=== PATIENT | female | born 1950 | race Caucasian/White ===

== ENCOUNTER → 2017-01-12 | Outpatient (CLI) | payer MEDICARE, OTHER ==
--- NOTE | 2017-01-14 11:04 | MM ---
Reason for exam: screening (asymptomatic). History: Patient is postmenopausal. Physical Findings: A clinical breast exam by your physician is recommended on an annual basis and results should be correlated with mammographic findings. MG 3D Screening Mammo W/Cad Bilateral CC and MLO view(s) were taken. The breast tissue is almost entirely fat. There is no discrete abnormality. ASSESSMENT: Negative, BI-RAD 1 RECOMMENDATION: Routine screening mammogram of both breasts in 1 year.
== END | disposition home or self-care (01) ==
LOC: RADMAMWWP 14:21
PROVIDERS: ATTEND Family Medicine
DX: Z12.31 Encounter for screening mammogram for malignant neoplasm of breast (principal)
CPT/HCPCS: 77063; G0202

== ENCOUNTER → 2018-05-16 | Outpatient (CLI) | payer MEDICARE, OTHER ==
--- NOTE | 2018-05-17 13:10 | MM ---
Reason for exam: screening (asymptomatic). Last mammogram was performed 1 year and 4 months ago. History: Patient is postmenopausal. Physical Findings: A clinical breast exam by your physician is recommended on an annual basis and results should be correlated with mammographic findings. MG 3D Screening Mammo W/Cad Bilateral CC and MLO view(s) were taken. Prior study comparison: January 12, 2017, bilateral MG 3d screening mammo w/cad. The breast tissue is almost entirely fat. No significant changes when compared with prior studies. ASSESSMENT: Benign, BI-RAD 2 RECOMMENDATION: Routine screening mammogram of both breasts in 1 year.
== END | disposition home or self-care (01) ==
LOC: RADMAMWWP 15:06
PROVIDERS: ATTEND Family Medicine
DX: Z12.31 Encounter for screening mammogram for malignant neoplasm of breast (principal)
CPT/HCPCS: 77063; 77067

== ENCOUNTER → 2018-05-24 | Outpatient (CLI) | payer MEDICARE, OTHER ==
--- NOTE | 2018-05-24 17:59 | MR ---
EXAMINATION TYPE: MR lumbar spine wo con DATE OF EXAM: 05/24/2018 COMPARISON: None HISTORY: Back pain CONTRAST: 0 mL intravenous Gadavist. TECHNIQUE: Multiplanar, multisequence images of the lumbar spine were acquired. FINDINGS: L5-S1: No significant disc bulge or disc herniation. No spinal canal stenosis. No foraminal stenosi s. . L4-L5: No significant disc bulge or disc herniation. No spinal canal stenosis. Uncovertebral joint h ypertrophy and facet hypertrophy has posterior lateral thecal sac compression. AP spinal canal narrow ing measuring 1.0 cm is present. Neural foramen are patent.. L3-L4: No significant disc bulge or disc herniation. No spinal canal stenosis. No foraminal stenosi s. Mild facet hypertrophy is present. There is mild superior endplate compression deformity. No susp icious signal changes to suggest acute compression is evident. No posterior wall displacement is evid ent.. L2-L3: No significant disc bulge or disc herniation. No spinal canal stenosis. No foraminal stenosi s. Facet hypertrophy is mild posterior lateral thecal sac compression.. L1-L2: No significant disc bulge or disc herniation. No spinal canal stenosis. No foraminal stenosi s. . T12-L1: Very minimal disc bulging into the right paracentral region may be present with anterior thec al sac flattening. No AP spinal canal stenosis is present. Neural foramen are patent. No spinal nash l stenosis. No foraminal stenosis. . T12: There is a severe compression deformity with approximately 70% loss of vertebral body height. Ap proximately 30% loss of posterior vertebral body height is evident. Subtle flattening of the anterior thecal sac is present without cord contact from the superior endplate. No spinal canal stenosis is p resent. T11-12 and T12-L1 foramen are patent. Note is made of some marrow conversion scattered throughout the lumbar spine. IMPRESSION: 1. Severe compression deformity at T12 without posterior wall displacement or spinal canal stenosis. 2. Mild compression deformity L3 without posterior wall displacement. 3. No acute osseous abnormality evident. 4. Multilevel facet hypertrophy. This appears greatest at L4-5 with ligamentum flavum laxity which espinosa s posterior thecal sac compression AP spinal canal narrowing at 1.0 cm is borderline present.
== END | disposition home or self-care (01) ==
LOC: RADMRIMAIN 13:51
PROVIDERS: ATTEND Orthopaedic Surgery
DX: S32.000A Wedge compression fracture of unspecified lumbar vertebra, initial encounter for closed fracture (principal); M99.73 Connective tissue and disc stenosis of intervertebral foramina of lumbar region
CPT/HCPCS: 72148

== ENCOUNTER → 2021-03-31 | Outpatient (CLI) | payer MEDICARE, OTHER ==
[2021-03-31 15:14] LABS: African American GFR (CKD) >90 (>60 ml/min/1.73 sqM); Blood Urea Nitrogen 12 mg/dL (7-17); Non-African American GFR(CKD) >90 (>60 ml/min/1.73 sqM)
--- NOTE | 2021-03-31 16:02 | CT ---
EXAMINATION TYPE: CT soft tissue neck w con DATE OF EXAM: 03/31/2021 COMPARISON: None HISTORY: Dysphagia, hoarseness CT DLP: 842.70 mGycm CONTRAST: CT scan of the neck is performed with IV Contrast, patient injected with 100 mL of Isovue 300. Contrast enhanced CT of the neck was performed from the skull base through the lung apices. AIRWAY: The supraglottic, glottic, and subglottic portions of the airway appear patent and free of mass. SALIVARY GLANDS: The submandibular and parotid glands are free of mass or inflammatory process. THYROID GLAND: No nodules or masses seen. LYMPH NODES: No adenopathy seen greater than 1cm. LUNG APICES: No nodule or mass is seen. OTHER: Vascular structures are patent. Degenerative changes cervical spine with postoperative change s noted as well. No abscess seen. IMPRESSION: No significant abnormality to account for the patient's symptoms. Correlate clinically.
== END | disposition home or self-care (01) ==
LOC: RADCTMAIN 14:21
PROVIDERS: ATTEND Otolaryngology
DX: R13.10 Dysphagia, unspecified (principal); R49.0 Dysphonia
CPT/HCPCS: 82565; 84520; 70491; 36415; Q9967

== ENCOUNTER 2021-05-13 13:08 | Emergency (ER) | payer MEDICARE, OTHER ==
[2021-05-13] MEDS ORDERED: SODIUM CHLORIDE 0.9% 500 ML 500 ML IV STA (13:14)
--- NOTE | 2021-05-13 13:27 | ED ---
General Adult HPI - General Stated complaint: SVT/Cardiac Time Seen by Provider: 05/13/21 13:08 Source: patient, RN notes reviewed, old records reviewed - History of Present Illness Initial comments: This is a 70-year-old female who presents emergency department with palpitations shortness of breath. Patient has been diagnosed with COVID over 10 days ago. Patient started feeling short of breath yesterday she states. EMS was called the primary to the hospital when they got there is her heart was about 180 day believed her to be in SVT they gave her adenosine 6 mg and converted to a normal sinus rhythm. Patient states currently she feels much improved. Patient is without complaint at this time. Patient denies any chest pain patient denies any fever chills or cough today. Patient denies any abdominal pain patient d enies nausea vomiting diarrhea - Related Data Home Medications Medication Instructions Recorded Confirmed Albuterol Sulfate [Proair Hfa] 2 puff INHALATION RT-QID PRN 05/13/21 05/13/21 Ascorbic Acid [Vitamin C] 500 mg PO DAILY 05/13/21 05/13/21 Body, Hair, Skin & Nails 2 tab PO DAILY 05/13/21 05/13/21 Budesonide [Pulmicort] 0.5 mg INHALATION RT-BID 05/13/21 05/13/21 Cetirizine HCl 10 mg PO DAILY 05/13/21 05/13/21 Cholecalciferol [Vitamin D3 (125 125 mcg PO DAILY 05/13/21 05/13/21 Mcg = 5000 Iu)] DULoxetine HCL [Cymbalta] 120 mg PO DAILY 05/13/21 05/13/21 Florastor 250mg 250 mg PO DAILY 05/13/21 05/13/21 L.acidoph,Paracasei, B.lactis 1 cap PO DAILY 05/13/21 05/13/21 [Probiotic] LORazepam [Ativan] 1 mg PO BID 05/13/21 05/13/21 Levothyroxine Sodium 150 mcg PO DAILY 05/13/21 05/13/21 Nystatin 100,000Unit/gm Cream 1 applic TOPICAL BID 05/13/21 05/13/21 [Mycostatin Cream] OLANZapine [ZyPREXA] 2.5 mg PO HS 05/13/21 05/13/21 Ondansetron Odt [Zofran Odt] 4 mg PO BID PRN 05/13/21 05/13/21 Primidone [Mysoline] 250 mg PO BID 05/13/21 05/13/21 levETIRAcetam [Keppra] 750 mg PO BID 05/13/21 05/13/21 Allergies Allergy/AdvReac Type Severity Reaction Status Date / Time avocado Allergy Unknown Verified 05/13/21 14:40 banana Allergy Rash/Hives Verified 05/13/21 14:40 ciprofloxacin [From Cipro] Allergy Rash/Hives Verified 05/13/21 14:40 clindamycin Allergy Rash/Hives Verified 05/13/21 14:40 iodine Allergy Rash/Hives Verified 05/13/21 14:40 Penicillins Allergy Rash/Hives Verified 05/13/21 14:40 shellfish derived [Shellfish] Allergy Rash/Hives Verified 05/13/21 14:40 vancomycin Allergy Rash/Hives Verified 05/13/21 14:40 alendronate sodium AdvReac tooth loss Verified 05/13/21 14:40 buspirone [From BuSpar] AdvReac Hallucinati Verified 05/13/21 14:40 ons Review of Systems ROS Statement: Those systems with pertinent positive or pertinent negative responses have been documented in the HPI. ROS Other: All systems not noted in ROS Statement are negative. General Exam - General Exam Comments Initial Comments: GENERAL: Patient is well-developed and well-nourished. Patient is nontoxic and well- hydrated and is in mild distress. ENT: Neck is soft and supple. No significant lymphadenopathy is noted. Oropharynx is clear. Moist mucous membranes. Neck has full range of motion without eliciting any pain. EYES: The sclera were anicteric and conjunctiva were pink and moist. Extraocular movements were intact and pupils were equal round and reactive to light. Eyelids were unremarkable. PULMONARY: Unlabored respirations. Good breath sounds bilaterally. No audible rales rhonchi or wheezing was noted. CARDIOVASCULAR: There is a regular rate and rhythm without any murmurs gallops or rubs. ABDOMEN: Soft and nontender with normal bowel sounds. No palpable organomegaly was noted. There is no palpable pulsatile mass. SKIN: Skin is clear with no lesions or rashes and otherwise unremarkable. NEUROLOGIC: Patient is alert and oriented x3. Cranial nerves II through XII are grossly intact. Motor and sensory are also intact. Patient's speech is low in volume which she states has been that way for a few days. Symmetrical smile. MUSCULOSKELETAL: Normal extremities with adequate strength and full range of motion. LYMPHATICS: No significant lymphadenopathy is noted PSYCHIATRIC: Normal psychiatric evaluation. Course Vital Signs 05/13/21 05/13/21 05/13/21 13:45 14:51 14:54 Temperature 97.8 F 98.8 F Pulse Rate 97 Pulse Rate [ 74 Left Lateral] Respiratory 18 21 Rate Blood Pressure 141/75 Blood Pressure 100/74 [Left Arm] O2 Sat by Pulse 95 97 Oximetry Medical Decision Making - Medical Decision Making EKG shows sinus rhythm with occasional PAC at a rate of 84 bpm [place] interval is 130 QRS is 86 QT interval 382 QTC is 451. Patient's EKG shows no ST segment elevation or depression. X-ray showed some possible increased edema. Patient was given Lasix this time. Patient was oxygenating at 95% 96%.. Patient remained asymptomatic in the emergency department. - Lab Data Result diagrams: 05/13/21 13:35 05/13/21 13:35 Lab Results 05/13/21 05/13/21 05/13/21 Range/Units 13:35 13:35 13:35 WBC 8.7 (3.8-10.6) k/uL RBC 4.23 (3.80-5.40) m/uL Hgb 13.6 (11.4-16.0) gm/dL Hct 40.2 (34.0-46.0) % MCV 94.9 (80.0-100.0) fL MCH 32.1 (25.0-35.0) pg MCHC 33.8 (31.0-37.0) g/dL RDW 13.5 (11.5-15.5) % Plt Count 162 (150-450) k/uL MPV 8.4 Neutrophils % 90 % Lymphocytes % 7 % Monocytes % 2 % Eosinophils % 1 % Basophils % 0 % Neutrophils # 7.8 H (1.3-7.7) k/uL Lymphocytes # 0.6 L (1.0-4.8) k/uL Monocytes # 0.2 (0-1.0) k/uL Eosinophils # 0.1 (0-0.7) k/uL Basophils # 0.0 (0-0.2) k/uL PT 11.4 (9.0-12.0) sec INR 1.1 (<1.2) APTT 22.8 (22.0-30.0) sec Sodium 137 (137-145) mmol/L Potassium 4.6 (3.5-5.1) mmol/L Chloride 96 L (98-107) mmol/L Carbon Dioxide 37 H (22-30) mmol/L Anion Gap 4 mmol/L BUN 14 (7-17) mg/dL Creatinine 0.34 L (0.52-1.04) mg/dL Est GFR (CKD-EPI)AfAm >90 (>60 ml/min/1.73 sqM) Est GFR (CKD-EPI)NonAf >90 (>60 ml/min/1.73 sqM) Glucose 144 H (74-99) mg/dL Calcium 8.7 (8.4-10.2) mg/dL Magnesium 2.1 (1.6-2.3) mg/dL Total Bilirubin 0.6 (0.2-1.3) mg/dL AST 34 (14-36) U/L ALT 26 (4-34) U/L Alkaline Phosphatase 62 (38-126) U/L Troponin I (0.000-0.034) ng/mL Total Protein 6.9 (6.3-8.2) g/dL Albumin 3.6 (3.5-5.0) g/dL TSH 6.210 H (0.465-4.680) mIU/L 05/13/21 Range/Units 13:35 WBC (3.8-10.6) k/uL RBC (3.80-5.40) m/uL Hgb (11.4-16.0) gm/dL Hct (34.0-46.0) % MCV (80.0-100.0) fL MCH (25.0-35.0) pg MCHC (31.0-37.0) g/dL RDW (11.5-15.5) % Plt Count (150-450) k/uL MPV Neutrophils % % Lymphocytes % % Monocytes % % Eosinophils % % Basophils % % Neutrophils # (1.3-7.7) k/uL Lymphocytes # (1.0-4.8) k/uL Monocytes # (0-1.0) k/uL Eosinophils # (0-0.7) k/uL Basophils # (0-0.2) k/uL PT (9.0-12.0) sec INR (<1.2) APTT (22.0-30.0) sec Sodium (137-145) mmol/L Potassium (3.5-5.1) mmol/L Chloride (98-107) mmol/L Carbon Dioxide (22-30) mmol/L Anion Gap mmol/L BUN (7-17) mg/dL Creatinine (0.52-1.04) mg/dL Est GFR (CKD-EPI)AfAm (>60 ml/min/1.73 sqM) Est GFR (CKD-EPI)NonAf (>60 ml/min/1.73 sqM) Glucose (74-99) mg/dL Calcium (8.4-10.2) mg/dL Magnesium (1.6-2.3) mg/dL Total Bilirubin (0.2-1.3) mg/dL AST (14-36) U/L ALT (4-34) U/L Alkaline Phosphatase (38-126) U/L Troponin I 0.021 (0.000-0.034) ng/mL Total Protein (6.3-8.2) g/dL Albumin (3.5-5.0) g/dL TSH (0.465-4.680) mIU/L Disposition Clinical Impression: Supraventricular tachycardia Disposition: HOME SELF-CARE Instructions (If sedation given, give patient instructions): Supraventricular Tachycardia (ED) Is patient prescribed a controlled substance at d/c from ED?: No Referrals: Fabiano Martinez MD [Primary Care Provider] - 1-2 days Time of Disposition: 15:11
[2021-05-13 13:59] LABS: Basophils % (A) 0 %; Eosinophils # (A) 0.1 k/uL (0-0.7); Eosinophils % (A) 1 %; HCT 40.2 % (34.0-46.0); HGB 13.6 gm/dL (11.4-16.0); Lymphocytes # (A) 0.6 k/uL (1.0-4.8); Lymphocytes % (A) 7 %; MCH 32.1 pg (25.0-35.0); MCHC 33.8 g/dL (31.0-37.0); MCV 94.9 fL (80.0-100.0); Mean Platelet Volume 8.4; Monocytes # (A) 0.2 k/uL (0-1.0); Monocytes % (A) 2 %; Neutrophils # (A) 7.8 k/uL (1.3-7.7); Neutrophils % (A) 90 %; Platelet Count 162 k/uL (150-450); RBC 4.23 m/uL (3.80-5.40); RDW 13.5 % (11.5-15.5); WBC 8.7 k/uL (3.8-10.6)
--- NOTE | 2021-05-13 14:06 | XR ---
EXAMINATION TYPE: XR chest 2V DATE OF EXAM: 05/13/2021 COMPARISON: Chest x-ray October 01, 2010 HISTORY: Dysrhythmia. TECHNIQUE: Frontal and lateral views of the chest are obtained. FINDINGS: Low lung volumes redemonstrated. There are chronic parenchymal changes bilaterally with sug gestion of new central vascular congestion.. The cardiac silhouette size is stable and within normal limits. The osseous structures are demineralized. Surgical change in the cervical spine is partial ly imaged. IMPRESSION: Low lung volumes and chronic changes redemonstrated. New central vascular congestion bozena pected.
[2021-05-13 14:10] LABS: INR 1.1 (<1.2); Partial Thromboplastin Time 22.8 sec (22.0-30.0); Prothrombin Time 11.4 sec (9.0-12.0)
[2021-05-13 14:13] LABS: ALT 26 U/L (4-34); African American GFR (CKD) >90 (>60 ml/min/1.73 sqM); Albumin 3.6 g/dL (3.5-5.0); Anion Gap 4 mmol/L; Blood Urea Nitrogen 14 mg/dL (7-17); Calcium 8.7 mg/dL (8.4-10.2); Carbon Dioxide 37 mmol/L (22-30); Chloride 96 mmol/L (98-107); Glucose 144 mg/dL (74-99); Non-African American GFR(CKD) >90 (>60 ml/min/1.73 sqM); Sodium 137 mmol/L (137-145); Total Bilirubin 0.6 mg/dL (0.2-1.3); Total Protein 6.9 g/dL (6.3-8.2)
[2021-05-13 14:15] LABS: AST 34 U/L (14-36); Alkaline Phosphatase 62 U/L (38-126); Potassium 4.6 mmol/L (3.5-5.1)
[2021-05-13 14:16] LABS: Magnesium 2.1 mg/dL (1.6-2.3)
[2021-05-13] MEDS ORDERED: FUROSEMIDE 10 MG/ML 4 ML VIAL IV STA (14:23)
[2021-05-13 14:53] VITALS: RESP 21
[2021-05-13 14:55] VITALS: TEMP 98.8
[2021-05-13] MEDS ORDERED: ONDANSETRON 4 MG/2 ML VIAL IVP STA (15:42)
[2021-05-13 19:42] VITALS: BP 126/76; PULSE 97
== END 2021-05-13 21:48 | disposition home or self-care (01) ==
LOC: EC 13:08
DX: I47.1 Supraventricular tachycardia (principal)
CPT/HCPCS: 36415; 93005; 80053; 83735; 84443; 84484; 85025; 85610; 85730; 71046; 99285; 96374; 96375; J1940; J2405

== ENCOUNTER 2021-06-28 19:12 | Inpatient (IN) | payer MEDICARE, OTHER ==
[2021-06-28 19:29] LABS: Glucose,Whole Blood 97 mg/dL (75-99)
[2021-06-28] MEDS ORDERED: ADENOSINE 3 MG/ML 2 ML VIAL IVP STA (20:36)
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
[2021-06-28 21:02] LABS: Basophils % (A) 0 %; Eosinophils % (A) 0 %; HCT 46.2 % (34.0-46.0); HGB 14.5 gm/dL (11.4-16.0); Hypochromasia Slight; Lymphocytes # (A) 1.7 k/uL (1.0-4.8); Lymphocytes % (A) 15 %; MCH 32.2 pg (25.0-35.0); MCHC 31.3 g/dL (31.0-37.0); Macrocytosis Slight; Mean Platelet Volume 9.1; Monocytes # (A) 0.6 k/uL (0-1.0); Monocytes % (A) 6 %; Neutrophils # (A) 8.7 k/uL (1.3-7.7); Neutrophils % (A) 78 %; Platelet Count 174 k/uL (150-450); RDW 13.7 % (11.5-15.5); WBC 11.2 k/uL (3.8-10.6)
[2021-06-28 21:15] LABS: ALT 25 U/L (4-34); AST 44 U/L (14-36); African American GFR (CKD) >90 (>60 ml/min/1.73 sqM); Alkaline Phosphatase 110 U/L (38-126); Anion Gap 9 mmol/L; Blood Urea Nitrogen 27 mg/dL (7-17); Calcium 8.8 mg/dL (8.4-10.2); Carbon Dioxide 39 mmol/L (22-30); Chloride 90 mmol/L (98-107); Glucose 115 mg/dL (74-99); Non-African American GFR(CKD) >90 (>60 ml/min/1.73 sqM); Sodium 138 mmol/L (137-145); Total Bilirubin 1.1 mg/dL (0.2-1.3); Total Protein 7.7 g/dL (6.3-8.2)
[2021-06-28 21:21] LABS: INR 1.1 (<1.2); Partial Thromboplastin Time 23.3 sec (22.0-30.0); Prothrombin Time 11.6 sec (9.0-12.0)
--- NOTE | 2021-06-28 21:23 | XR ---
EXAMINATION TYPE: XR chest 1V portable DATE OF EXAM: 06/28/2021 9:17 PM COMPARISON:Chest radiographs from 05/13/2021. CLINICAL INDICATION:Female, 70 years old with history of hypoxia, TECHNIQUE: Frontal view of the chest. FINDINGS: Patient is poorly positioned. There is a similar of a right diaphragm. Perihilar opacities are again seen. Lungs/Pleura: There is no evidence of pleural effusion, focal consolidation, or pneumothorax. Pulmonary vascularity: Pulmonary vascular congestion. Heart/mediastinum: Cardiomediastinal silhouette is enlarged and stable. Musculoskeletal: No acute osseous pathology. IMPRESSION: Lung volumes with suspected congestive heart failure changes with cardiomegaly and mild pulmonary vas cular congestion. Correlate with BNP.
[2021-06-28 21:35] LABS: MCV 102.9 fL (80.0-100.0)
--- NOTE | 2021-06-28 22:15 | CT ---
EXAMINATION TYPE: CT brain wo con DATE OF EXAM: 06/28/2021 COMPARISON: 10/01/2010 HISTORY: ams CT DLP: 1182.4 mGycm Automated exposure control for dose reduction was used. There is some cerebral cortical atrophy. This is more noticeable in the frontal lobes. There is more severe right foraminal and parietal atrophy. There is no midline shift. There is no evidence of intra cranial hemorrhage. The calvarium is intact. There is posterior fusion surgery at the cervical crania l junction. IMPRESSION: Cerebral atrophy which is more severe in the right frontal parietal lobe and not changed compared to old exam. No acute intracranial abnormality.
[2021-06-28] MEDS ORDERED: LORazepam 2 MG/ML INJ IV STA (22:16)
[2021-06-28] MEDS ORDERED: HEPARIN SODIUM 1,000 UN/ML (10ML VL) IV ONE (22:21)
[2021-06-28] MEDS ORDERED: ASPIRIN 81 MG PO STA (22:21)
[2021-06-28] MEDS ORDERED: HEPARIN SODIUM 1,000 UN/ML (10ML VL) IV PRN (22:21)
[2021-06-28] MEDS ORDERED: METOPROLOL TARTRATE 5 MG/5 ML VIAL IVP SCH (22:30)
[2021-06-28] MEDS: ADENOSINE 3 MG/ML 2 ML VIAL IVP STA ×2 (22:34→22:40)
[2021-06-28 22:35] LABS: Appearance,Urine Cloudy (Clear); Bacteria,Urine Few /hpf; Bilirubin,Urine Negative (Negative); Blood,Urine Negative (Negative); Color,Urine Yellow; Glucose,Urine (UA) Negative (Negative); Hyaline Casts,Urine 8 /lpf (0-2); Ketones,Urine Trace (Negative); Leukocyte Esterase,Urine Large (Negative); Mucus,Urine Occasional /hpf; Nitrite,Urine Negative (Negative); Protein,Urine 1+ (Negative); RBC,Urine 4 /hpf (0-5); Specific Gravity,Urine 1.025 (1.001-1.035); Triple Phosphate Crystal,Urine Rare /hpf; WBC,Urine >182 /hpf (0-5)
[2021-06-28] MEDS ORDERED: METOPROLOL TARTRATE 5 MG/5 ML VIAL IVP STA (22:36)
[2021-06-28] MEDS: HEPARIN SOD,PORK IN 0.45% NACL 25,000 UNIT in 0.45% NACL 1 250ML.BAG IV SCH (22:41)
[2021-06-28] MEDS ORDERED: FUROSEMIDE 10 MG/ML 4 ML VIAL IV STA (22:59)
[2021-06-28] MEDS ORDERED: ALBUTEROL NEBULIZED 2.5 MG/3 ML INHALATION PRN (23:06)
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
[2021-06-29] MEDS ORDERED: ADENOSINE 3 MG/ML 2 ML VIAL IVP STA (02:46)
[2021-06-29 04:03] LABS: Basophils # (A) 0.1 k/uL (0-0.2); Basophils % (A) 1 %; Eosinophils # (A) 0.1 k/uL (0-0.7); Eosinophils % (A) 1 %; HCT 46.4 % (34.0-46.0); HGB 13.9 gm/dL (11.4-16.0); Hypochromasia Moderate; Lymphocytes % (A) 17 %; MCH 31.2 pg (25.0-35.0); MCV 103.9 fL (80.0-100.0); Macrocytosis Slight; Mean Platelet Volume 8.4; Monocytes # (A) 0.8 k/uL (0-1.0); Monocytes % (A) 7 %; Neutrophils # (A) 8.5 k/uL (1.3-7.7); Neutrophils % (A) 72 %; Platelet Count 158 k/uL (150-450); RBC 4.47 m/uL (3.80-5.40); RDW 12.9 % (11.5-15.5); WBC 11.7 k/uL (3.8-10.6)
[2021-06-29 04:12] LABS: INR 1.2 (<1.2); Partial Thromboplastin Time 48.8 sec (22.0-30.0); Prothrombin Time 12.1 sec (9.0-12.0)
[2021-06-29 04:28] LABS: ALT 22 U/L (4-34); AST 31 U/L (14-36); African American GFR (CKD) >90 (>60 ml/min/1.73 sqM); Albumin 3.7 g/dL (3.5-5.0); Alkaline Phosphatase 116 U/L (38-126); Anion Gap 7 mmol/L; Blood Urea Nitrogen 26 mg/dL (7-17); Calcium 8.6 mg/dL (8.4-10.2); Carbon Dioxide 37 mmol/L (22-30); Chloride 95 mmol/L (98-107); Glucose 110 mg/dL (74-99); Non-African American GFR(CKD) >90 (>60 ml/min/1.73 sqM); Potassium 4.1 mmol/L (3.5-5.1); Sodium 139 mmol/L (137-145); Total Bilirubin 0.8 mg/dL (0.2-1.3); Total Protein 6.9 g/dL (6.3-8.2)
[2021-06-29] MEDS ORDERED: VERAPAMIL 80 MG TAB PO SCH (09:00)
[2021-06-29] MEDS: DULoxetine HCL 60 MG CAPSULE.DR PO SCH (09:50)
[2021-06-29] MEDS: DOXYCYCLINE 100 MG CAP PO SCH (09:50)
[2021-06-29] MEDS: PANTOPRAZOLE 40 MG TABLET PO SCH (09:51)
[2021-06-29] MEDS: LEVOTHYROXINE 88 MCG TAB PO SCH (09:51)
[2021-06-29] MEDS: LORazepam 0.5 MG TAB PO SCH ×2 (09:51→21:03)
[2021-06-29] MEDS: FUROSEMIDE 10 MG/ML 4 ML VIAL IV SCH ×2 (10:05→21:03)
[2021-06-29] MEDS: AMIODARONE 200 MG TAB PO SCH ×2 (10:05→21:03)
[2021-06-29] MEDS: METOPROLOL SUCCINATE (ER) 25 MG TAB.ER.24H PO SCH (11:49)
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
--- NOTE | 2021-06-29 12:10 | P.PN ---
Subjective Progress Note Date: 06/29/21 Pt is near baseline oxygen requirement. Reports significant improvement in breathing compared to yesterday. Denies pain anywhere. Only question is regarding when she can be discharged. I would like to observe her for one more night, then if stable, we can discharge her tomorrow. Down-titrate oxygen to baseline today. Objective - Vital Signs Vital signs: Vital Signs Temp 99.1 F 06/28/21 19:34 Pulse 57 L 06/29/21 09:54 Resp 16 06/29/21 09:54 BP 133/71 06/29/21 09:54 Pulse Ox 98 06/29/21 09:54 Intake & Output 06/28/21 06/29/21 06/29/21 18:59 06:59 18:59 Intake Total 53.167 Balance 53.167 Weight 107.275 kg Intake: Intake, IV Titration 53.167 Amount Heparin Sod,Pork in 0.45% 53.167 NaCl 25,000 unit In 0.45 % NaCl 1 250ml.bag @ 9. 3218 UNITS/KG/HR 10 mls/ hr IV .Q24H [facility] Rx#: [id number] - Exam Gen: awake, alert HEENT: normocephalic, atraumatic, good hearing acuity, moist mucous membranes Resp: good air exchange, breathing comfortably with no accessory muscle use CVS: good distal perfusion x 4, GI: soft, NTTP, ND : no SPT, no CVAT, MSK: Bilateral pitting edema, no clubbing Neuro: non-focal, moving all extremities Psych: cooperative, euthymic mood - Labs CBC & Chem 7: 06/29/21 03:37 06/29/21 03:37 Labs: Abnormal Lab Results - Last 24 Hours (Table) 06/28/21 06/28/21 06/28/21 Range/Units 20:23 20:23 20:23 WBC 11.2 H (3.8-10.6) k/uL Hct 46.2 H (34.0-46.0) % MCV 102.9 H D (80.0-100.0) fL MCHC (31.0-37.0) g/dL Neutrophils # 8.7 H (1.3-7.7) k/uL PT (9.0-12.0) sec INR (<1.2) APTT (22.0-30.0) sec Chloride 90 L (98-107) mmol/L Carbon Dioxide 39 H (22-30) mmol/L BUN 27 H (7-17) mg/dL Creatinine (0.52-1.04) mg/dL Glucose 115 H (74-99) mg/dL AST 44 H (14-36) U/L Troponin I 0.079 H* (0.000-0.034) ng/mL Urine Appearance (Clear) Urine Protein (Negative) Urine Ketones (Negative) Ur Leukocyte Esterase (Negative) Urine WBC (0-5) /hpf Triple Phos Crystals (None) /hpf Urine Bacteria (None) /hpf Hyaline Casts (0-2) /lpf Urine Mucus (None) /hpf 06/28/21 06/28/21 06/29/21 Range/Units 20:27 23:43 03:37 WBC (3.8-10.6) k/uL Hct (34.0-46.0) % MCV (80.0-100.0) fL MCHC (31.0-37.0) g/dL Neutrophils # (1.3-7.7) k/uL PT 12.1 H (9.0-12.0) sec INR 1.2 H (<1.2) APTT 48.8 H (22.0-30.0) sec Chloride (98-107) mmol/L Carbon Dioxide (22-30) mmol/L BUN (7-17) mg/dL Creatinine (0.52-1.04) mg/dL Glucose (74-99) mg/dL AST (14-36) U/L Troponin I 0.089 H* (0.000-0.034) ng/mL Urine Appearance Cloudy H (Clear) Urine Protein 1+ H (Negative) Urine Ketones Trace H (Negative) Ur Leukocyte Esterase Large H (Negative) Urine WBC >182 H (0-5) /hpf Triple Phos Crystals Rare H (None) /hpf Urine Bacteria Few H (None) /hpf Hyaline Casts 8 H (0-2) /lpf Urine Mucus Occasional H (None) /hpf 06/29/21 06/29/21 06/29/21 Range/Units 03:37 03:37 03:37 WBC 11.7 H (3.8-10.6) k/uL Hct 46.4 H (34.0-46.0) % MCV 103.9 H (80.0-100.0) fL MCHC 30.0 L (31.0-37.0) g/dL Neutrophils # 8.5 H (1.3-7.7) k/uL PT (9.0-12.0) sec INR (<1.2) APTT (22.0-30.0) sec Chloride 95 L (98-107) mmol/L Carbon Dioxide 37 H (22-30) mmol/L BUN 26 H (7-17) mg/dL Creatinine 0.49 L (0.52-1.04) mg/dL Glucose 110 H (74-99) mg/dL AST (14-36) U/L Troponin I 0.071 H* (0.000-0.034) ng/mL Urine Appearance (Clear) Urine Protein (Negative) Urine Ketones (Negative) Ur Leukocyte Esterase (Negative) Urine WBC (0-5) /hpf Triple Phos Crystals (None) /hpf Urine Bacteria (None) /hpf Hyaline Casts (0-2) /lpf Urine Mucus (None) /hpf Assessment and Plan Assessment: Acute on chronic hypoxic respiratory failure secondary to acute CHF exacerbation -Lasix IV -Pending Echo -Cardiology consult -Cardiac monitoring -Trend troponin -Daily weights, intake and output, fluid restriction -Monitor electrolytes daily Elevated troponin, NSTEMI vs demand ischemia from CHF exacerbation Atrial Tachycardia/Atrial Flutter with RVR -C/w Heparin infusion -Trend for now -Cardiac monitoring Complicated UTI -C/w Doxycycline for now DVT prophylaxis -Heparin infusion CODE STATUS: Full Code Discussed with: Patient Anticipated discharge date: 3-[address]: [facility]
[2021-06-30] MEDS: HEPARIN SOD,PORK IN 0.45% NACL 25,000 UNIT in 0.45% NACL 1 250ML.BAG IV SCH (00:38)
[2021-06-30] MEDS: DOXYCYCLINE 100 MG CAP PO SCH ×3 (00:39→19:48)
[2021-06-30] MEDS ORDERED: ADENOSINE 3 MG/ML 2 ML VIAL IVP ONE ×2 (03:56→04:06)
--- NOTE | 2021-06-30 04:50 | P.EN ---
A- team: Indication: Tachycardia Arrived on Scene to find: Patient with HR 162. The patient denied any active complaints. She denied chest pain, SOB, or palpitations. Vital signs reviewed: BP 82/63, P 162, SpO2 95% on 3 L NC Patient seen and examined at bedside. General: [non toxic], [no distress], [appears at stated age] Derm: [warm], [dry] Head: [atraumatic], [normocephalic], [symmetric] Eyes: [EOMI], [no lid lag], [anicteric sclera] Mouth: [no lip lesion], [mucus membranes moist] Cardiovascular: [S1S2 reg], tachycardic, [no murmur], [positive posterior tibial pulse bilateral], Lungs: [CTA bilateral], [no rhonchi, no rales] , [no accessory muscle use] Abdominal: [soft], [ nontender to palpation], [no guarding], [no appreciable organomegaly] Ext: [no gross muscle atrophy], [no edema], [no contractures] Neuro: [no focal neuro deficits] Psych: [Alert], [oriented], [appropriate affect] Assessment: SVT -Adenosine 6 mg IV push was unsuccessful with subsequent 12 milligrams IV push successfully aborting and the arrhythmia -Cardiology notified -C/w Cardiac monitoring A Total of 35 minutes of critical care time was spent on the complex care of this patient.
[2021-06-30] MEDS: LEVOTHYROXINE 88 MCG TAB PO SCH (06:10)
[2021-06-30] MEDS: PANTOPRAZOLE 40 MG TABLET PO SCH (06:11)
[2021-06-30] MEDS: LORazepam 0.5 MG TAB PO SCH ×2 (08:54→19:48)
[2021-06-30] MEDS: DULoxetine HCL 60 MG CAPSULE.DR PO SCH (08:54)
[2021-06-30] MEDS: FUROSEMIDE 10 MG/ML 4 ML VIAL IV SCH ×2 (08:54→19:48)
[2021-06-30] MEDS: METOPROLOL SUCCINATE (ER) 25 MG TAB.ER.24H PO SCH (08:55)
[2021-06-30] MEDS: AMIODARONE 200 MG TAB PO SCH ×2 (08:55→19:48)
[2021-06-30] MEDS ORDERED: ASPIRIN 81 MG PO SCH (09:00)
--- NOTE | 2021-06-30 09:58 | P.PN ---
Subjective Progress Note Date: 06/30/21 Pt is doing well today, resting comfortably in bed. Denies dyspnea, pain, palpitations. Had episode of SVT last night which was aborted by adenosine. Objective - Vital Signs Vital signs: Vital Signs Temp 97.4 F L 06/29/21 20:00 Pulse 78 06/30/21 04:00 Resp 20 06/30/21 04:00 BP 112/70 06/30/21 04:00 Pulse Ox 95 06/30/21 04:00 Intake & Output 06/29/21 06/30/21 06/30/21 18:59 06:59 18:59 Intake Total 316.833 Balance 316.833 Weight 107.275 kg 86 kg Intake: Intake, IV Titration 196.833 Amount Heparin Sod,Pork in 0.45% 196.833 NaCl 25,000 unit In 0.45 % NaCl 1 250ml.bag @ 9. 3218 UNITS/KG/HR 10 mls/ hr IV .Q24H [facility] Rx#: [id number] Oral 120 Other: Voiding Method External Catheter # Voids 3 - Exam Gen: awake, alert HEENT: normocephalic, atraumatic, good hearing acuity, moist mucous membranes Resp: good air exchange, breathing comfortably with no accessory muscle use CVS: good distal perfusion x 4, GI: soft, NTTP, ND : no SPT, no CVAT, MSK: Bilateral pitting edema, no clubbing Neuro: non-focal, moving all extremities Psych: cooperative, euthymic mood - Labs CBC & Chem 7: 06/29/21 03:37 06/29/21 03:37 Labs: Abnormal Lab Results - Last 24 Hours (Table) 06/29/21 Range/Units 03:37 Vitamin B12 >2000.0 H (200.0-944.0) pg/mL Microbiology - Last 24 Hours (Table) 06/28/21 22:07 Blood Culture - Preliminary Blood No Growth after 24 hours 06/28/21 22:22 Blood Culture - Preliminary Blood No Growth after 24 hours 06/28/21 20:27 Urine Culture - Preliminary Urine,Voided Assessment and Plan Assessment: Acute on chronic hypoxic respiratory failure secondary to acute CHF exacerbation -Lasix IV -Pending Echo -Cardiology consult -Cardiac monitoring -Trend troponin -Daily weights, intake and output, fluid restriction -Monitor electrolytes daily Elevated troponin, NSTEMI vs demand ischemia from CHF exacerbation Atrial Tachycardia/Atrial Flutter with RVR -C/w Heparin infusion -Trend for now -Cardiac monitoring Complicated UTI -C/w Doxycycline for now DVT prophylaxis -Heparin infusion CODE STATUS: Full Code Discussed with: Patient Anticipated discharge date: 3-[address]: [facility]
--- NOTE | 2021-06-30 12:18 | ECHOF ---
Referral Reason:elevated BNP MEASUREMENTS -------- HEIGHT: 175.3 cm WEIGHT: 107.0 kg BP: 112/70 RVIDd: 3.4 cm (< 3.3) IVSd: 1.3 cm (0.6 - 1.1) LVIDd: 3.7 cm (3.9 - 5.3) LVPWd: 1.1 cm (0.6 - 1.1) IVSs: 1.8 cm LVIDs: 2.6 cm LVPWs: 1.9 cm LA Diam: 3.4 cm (2.7 - 3.8) LAESV Index (A-L): 14.57 ml/m Ao Diam: 3.0 cm (2.0 - 3.7) AV Cusp: 1.1 cm (1.5 - 2.6) MV EXCURSION: 19.523 mm (> 18.000) MV EF SLOPE: 78 mm/s (70 - 150) EPSS: 0.7 cm MV E Bryant: 0.66 m/s MV DecT: 309 ms MV A Bryant: 0.92 m/s MV E/A Ratio: 0.72 RAP: 5.00 mmHg RVSP: 40.61 mmHg FINDINGS -------- Sinus rhythm. This was a technically adequate study. The left ventricular size is normal. There is mild concentric left ventricular hypertrophy. Overa ll left ventricular systolic function is normal with, an EF between 55 - 60 %. The right ventricle is mildly enlarged. Normal LA size by volume 22+/-6 ml/m2. The right atrium is normal in size. Interatrial and interventricular septum intact. There is mild aortic valve sclerosis. Mild mitral annular calcification present. Mild tricuspid regurgitation present. There is mild pulmonary hypertension. The right ventricular systolic pressure, as measured by Doppler, is 40.61mmHg. Trace/mild (physiologic) pulmonic regurgitation. The aortic root size is normal. IVC Not well visulized. There is no pericardial effusion. CONCLUSIONS -------- 1. The left ventricular size is normal. 2. There is mild concentric left ventricular hypertrophy. 3. Overall left ventricular systolic function is normal with, an EF between 55 - 60 %. 4. The right ventricle is mildly enlarged. 5. There is mild aortic valve sclerosis. 6. Mild mitral annular calcification present. 7. Mild tricuspid regurgitation present. 8. There is mild pulmonary hypertension. 9. The right ventricular systolic pressure, as measured by Doppler, is 40.61mmHg. 10. Trace/mild (physiologic) pulmonic regurgitation. 11. There is no pericardial effusion. GRADER PATROL: Milagro Daniel RDCS
--- NOTE | 2021-06-30 13:49 | P.PN ---
Subjective Patient is a 70-year-old female with a past medical history of COPD, hyperlipidemia, hypertension, and hypothyroidism, COVID-19 pneumonia in April 2021 she was hospitalized at [facility]. 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 She is from a nursing facility, sent to the hospital for worsening shortness of breath and hypoxia. Cardiology was consulted for congestive heart failure and paroxysmal SVT, atrial flutter vs atrial tachycardia. In the ER patient was noted to be in SVT given adenosine and did spontaneously convert to sinus rhythm with PACs. 06/30/20 This morning patient went back into SVT heart rate in the 140s, received a total of 12mg adenosine and converted back to sinus rhythm HR 50s-60s. Patient seen at bedside, no distress. She continues to have some shortness of breath but states that it has improved. She denies any chest pain. She is diuresing well with 2.2L output over the past 24 hours. Labs pending Echocardiogram revealed EF 5560 percent, mild pulmonary hypertension with RVSP is 40 mmHg She's currently maintained on amiodarone 200 mg twice a day, IV heparin, metoprolol succinate 75 mg daily, IV Lasix 40mg BID PHYSICAL EXAMINATION: Th HEENT: Neck is supple. There is no jugular venous distention. CHEST EXAMINATION: Lungs are crackles bilaterally to auscultation. No chest wall tenderness is noted on palpation or with deep breathing. HEART EXAMINATION: Heart regular rate and rhythm. S1, S2 heard. No murmurs, gallops or rub. ABDOMEN: Soft, nontender. Bowel sounds are heard. No organomegaly noted. EXTREMITIES: 2+ peripheral edema. Positive foot drop FINAL ASSESSMENT AND PLAN: Acute congestive diastolic heart failure exacerbation Elevated troponin, flat trend, not consistent with acute coronary syndrome, likely supply and demand mismatch due to hypoxia and also demand ischemia due to tachycardia Atrial tachycardia/atrial flutter Hypertension Dyslipidemia Urinary tract infection PLAN: Continue amiodarone 200 mg twice daily Start Eliquis 5mg BID, this medication is covered per case management at patient's nursing facility Continue cardiac employment coach I/Os, daily weights, renal function and electrolytes Further recommendations to be placed on clinical course The patient has been seen and evaluated by practitioner and coordinating physician Objective - Vital Signs Vital signs: Vital Signs Temp 97.8 F 06/30/21 08:00 Pulse 69 01/17/22 08:00 Resp 18 06/30/21 08:00 BP 99/66 06/30/21 08:00 Pulse Ox 93 L 06/30/21 08:00 Intake & Output 06/29/21 06/30/21 06/30/21 18:59 06:59 18:59 Intake Total 316.833 240 Output Total 1100 Balance 316.833 -860 Weight 107.275 kg 86 kg Intake: Intake, IV Titration 196.833 Amount Heparin Sod,Pork in 0.45% 196.833 NaCl 25,000 unit In 0.45 % NaCl 1 250ml.bag @ 9. 3218 UNITS/KG/HR 10 mls/ hr IV .Q24H [facility] Rx#: [id number] Oral 120 240 Output: Urine 1100 Other: Voiding Method External Catheter External Catheter # Voids 3 - Labs CBC & Chem 7: 06/29/21 03:37 06/29/21 03:37 Labs: Abnormal Lab Results - Last 24 Hours (Table) 06/29/21 06/30/21 Range/Units 03:37 09:00 APTT 59.4 H (22.0-30.0) sec Vitamin B12 >2000.0 H (200.0-944.0) pg/mL Microbiology - Last 24 Hours (Table) 06/28/21 22:07 Blood Culture - Preliminary Blood No Growth after 24 hours 06/28/21 22:22 Blood Culture - Preliminary Blood No Growth after 24 hours 06/28/21 20:27 Urine Culture - Preliminary Urine,Voided
[2021-06-30] MEDS: APIXABAN 5 MG TAB PO SCH (19:48)
[2021-07-01] MEDS: LEVOTHYROXINE 88 MCG TAB PO SCH (06:21)
[2021-07-01] MEDS: PANTOPRAZOLE 40 MG TABLET PO SCH (06:21)
[2021-07-01 07:55] LABS: Basophils % (A) 0 %; Eosinophils # (A) 0.1 k/uL (0-0.7); Eosinophils % (A) 1 %; HCT 43.2 % (34.0-46.0); HGB 13.3 gm/dL (11.4-16.0); Hypochromasia Moderate; Lymphocytes # (A) 1.7 k/uL (1.0-4.8); Lymphocytes % (A) 22 %; MCHC 30.9 g/dL (31.0-37.0); MCV 103.8 fL (80.0-100.0); Macrocytosis Slight; Mean Platelet Volume 8.3; Monocytes # (A) 0.6 k/uL (0-1.0); Monocytes % (A) 7 %; Neutrophils # (A) 5.5 k/uL (1.3-7.7); Neutrophils % (A) 68 %; Platelet Count 164 k/uL (150-450); RBC 4.16 m/uL (3.80-5.40); RDW 13.1 % (11.5-15.5)
[2021-07-01 08:10] LABS: African American GFR (CKD) >90 (>60 ml/min/1.73 sqM); Blood Urea Nitrogen 17 mg/dL (7-17); Chloride 96 mmol/L (98-107); Glucose 112 mg/dL (74-99); Magnesium 1.7 mg/dL (1.6-2.3); Non-African American GFR(CKD) >90 (>60 ml/min/1.73 sqM); Potassium 3.6 mmol/L (3.5-5.1); Sodium 140 mmol/L (137-145)
[2021-07-01] MEDS: DULoxetine HCL 60 MG CAPSULE.DR PO SCH (08:12)
[2021-07-01] MEDS: APIXABAN 5 MG TAB PO SCH ×2 (08:12→19:55)
[2021-07-01] MEDS: DOXYCYCLINE 100 MG CAP PO SCH (08:12)
[2021-07-01] MEDS: LORazepam 0.5 MG TAB PO SCH ×2 (08:12→19:55)
[2021-07-01] MEDS: FUROSEMIDE 10 MG/ML 4 ML VIAL IV SCH (08:12)
[2021-07-01] MEDS: METOPROLOL SUCCINATE (ER) 25 MG TAB.ER.24H PO SCH (08:12)
[2021-07-01] MEDS: AMIODARONE 200 MG TAB PO SCH ×2 (08:12→19:55)
[2021-07-01 08:16] LABS: Anion Gap 1 mmol/L
[2021-07-01 08:20] LABS: Carbon Dioxide 43 mmol/L (22-30)
--- NOTE | 2021-07-01 10:09 | CDI ---
Documentation Clarification Form Date: 07/01/2021 09:53:00 AM From: Reina Schultz CCS, CCDS Admit Date: 06/28/2021 11:02:00 PM Patient Name: Ivania Felton Visit Number: [id number] Discharge Date: ATTENTION: The Clinical Documentation Specialists (CDI) and [facility] Coding Staff appreciate your assistance in clarifying documentation. Please respond to the clarification below the line at the bottom and electronically sign. The CDI & [facility] Coding staff will review the response and follow-up if needed. Please note: Queries are made part of the Legal Health Record. If you have any questions, please contact the author of this message via ITS. Dr. Solo Anaya: Per the 06/30 Cardiology Progress Note: Elevated troponin, flat trend, not consistent with acute coronary syndrome, likely supply and demand mismatch due to hypoxia and also demand ischemia due to tachycardia. Also Atrial tachycardia/Atrial flutter. Acute congestive diastolic heart failure exacerbation and Hypertension. Additional clarification regarding the etiology of the Elevated Troponins is requested. Patient History/Risk Factors per the 06/28 H/P: Chronic Hypoxic Respiratory Failure on Home O2, Resident of a Detention, COPD, Hyperlipidemia, Hypertension and Hypothyroidism. Clinical Indicators: Presented to the ED on 06/28 via EMS with Altered Mental Status, Hypoxic on supplemental O2. Nonverbal at baseline secondary to history of Tracheostomy. Initially in SVT on the threat monitoring analyst on arrival to the ED, spontaneously converted prior to any therapy. Admit with Paroxysmal SVT, Hypoxia, Elevated Troponins and CHF. 06/28 VS: T 99.1, P 147, R 22, BP 142/119, PO 98 4Lnc, BMI: 28.3 06/28 LAB: WBC 11.2, Hct 46.2, Neut 8.7; Cl 90, CO2 39, BUN 27, Glucose 115, AST 44. Troponin 0.09, 0.071 06/28 EKG: R 145 Sinus tachycardia, ST & T wave abnormality, consider anterior ischemia. 06/28 Repeat EKG: R 69 Sinus rhythm with PACs, Nonspecific T wave abnormality. 06/30 ECHO: Mild concentric LVH, Left ventricular systolic function is normal with EF 55-60%, Right ventricle is mildly enlarged, Mild aortic valve sclerosis, Mild mitral annular calcification, Mild TR, Mild pulmonary hypertension, Trace/mild pulmonic regurgitation. Treatment: Telemetry, Heparin Drip, Blood Cultures, Urine Culture, Occult Blood, O2, IV Adenocard x1, po Aspirin x1, IV Heparin drip, IV Lopressor 5 mg x1, INH Ventolin q6H/prn Please clarify the following: [ ] Type 2 NV due to CHF [ ] Type 2 NV due to Arrhythmia, please specify type: [ ] Type 2 NV due to other condition, please specify: [ ] Other type of NV, please specify: [ ] Unable to determine (Template Last Revised: August 2020) Impression Unable to determine the cause of abnormal troponins MTDD
--- NOTE | 2021-07-01 10:53 | P.PN ---
Subjective Progress Note Date: 07/01/21 Pt says she still has dyspnea this morning. Doesn't feel quite back to normal. Would like PT upon discharge. Asks for one more night of observation prior to discharge. Objective - Vital Signs Vital signs: Vital Signs Temp 98.1 F 07/01/21 08:00 Pulse 60 07/01/21 08:00 Resp 20 07/01/21 08:00 BP 109/64 07/01/21 08:00 Pulse Ox 96 07/01/21 08:00 Intake & Output 06/30/21 07/01/21 07/01/21 18:59 06:59 18:59 Intake Total 716 118 Output Total 2200 Balance -1484 118 Weight 86 kg 87 kg Intake: Oral 716 118 Output: Urine 2200 Other: Voiding Method External Catheter External Catheter External Catheter # Voids 1 # Bowel Movements 2 - Exam Gen: awake, alert HEENT: normocephalic, atraumatic, good hearing acuity, moist mucous membranes Resp: good air exchange, breathing comfortably with no accessory muscle use CVS: good distal perfusion x 4, GI: soft, NTTP, ND : no SPT, no CVAT, MSK: Bilateral pitting edema, no clubbing Neuro: non-focal, moving all extremities Psych: cooperative, euthymic mood - Labs CBC & Chem 7: 07/01/21 07:24 07/01/21 07:24 Labs: Abnormal Lab Results - Last 24 Hours (Table) 07/01/21 07/01/21 Range/Units 07:24 07:24 MCV 103.8 H (80.0-100.0) fL MCHC 30.9 L (31.0-37.0) g/dL Chloride 96 L (98-107) mmol/L Carbon Dioxide 43 H* (22-30) mmol/L Creatinine 0.50 L (0.52-1.04) mg/dL Glucose 112 H (74-99) mg/dL Microbiology - Last 24 Hours (Table) 06/28/21 20:27 Urine Culture - Preliminary Urine,Voided Gram Neg Bacilli Proteus mirabilis 06/28/21 22:07 Blood Culture - Preliminary Blood No Growth after 48 hours 06/28/21 22:22 Blood Culture - Preliminary Blood No Growth after 48 hours Assessment and Plan Assessment: Acute on chronic hypoxic respiratory failure secondary to acute diastolic CHF exacerbation -Lasix IV, hold today for worsening alkalosis -Echo with good EF 55-60%, RVE. -Cardiology consult -Cardiac monitoring -Trend troponin -Daily weights, intake and output, fluid restriction -Monitor electrolytes daily Elevated troponin, demand ischemia from CHF exacerbation Atrial Tachycardia/Atrial Flutter with RVR -Heparin gtt d/c'd, transitioned to eliquis -started amiodarone -Trend for now -Cardiac monitoring Complicated UTI -UCx growing proteus, resistant to tetracyclines -ceftriaxone 1g q24, then will switch to cefdinir on discharge if no reaction to ceftriaxone, allergies noted. DVT prophylaxis -Heparin infusion CODE STATUS: Full Code Discussed with: Patient Anticipated discharge date: 3-[address]: [facility]
--- NOTE | 2021-07-01 12:09 | P.PN ---
Subjective Patient is a 70-year-old female with a past medical history of COPD, hyperlipidemia, hypertension, and hypothyroidism, COVID-19 pneumonia in April 2021 she was hospitalized at [facility]. She does not follow with a jewel stringer. She is from a nursing facility, sent to the hospital for worsening shortness of breath and hypoxia. Cardiology was consulted for congestive heart failure and paroxysmal SVT, atrial flutter vs atrial tachycardia. In the ER patient was noted to be in SVT given adenosine and did spontaneously convert to sinus rhythm with PACs. 07/01/21 Patient seen and examined at bedside, no acute distress. Her breathing has slightly improved. No further SVT or atrial flutter. Patient maintaining sinus with PACs. She denies any chest pain. She is diuresing well with 2.2L output over the past 24 hours. Labs, Sodium 140, K 3.6, Chloride 96, CO2 43, BUN 17, sCr 0.50, magnesium 1.7. Echocardiogram revealed EF 5560 percent, mild pulmonary hypertension with RVSP is 40 mmHg She's currently maintained on amiodarone 200 mg twice a day, IV heparin, metoprolol succinate 75 mg daily, IV Lasix 40mg BID PHYSICAL EXAMINATION: Th HEENT: Neck is supple. There is no jugular venous distention. CHEST EXAMINATION: Lungs are crackles bilaterally to auscultation. No chest wall tenderness is noted on palpation or with deep breathing. HEART EXAMINATION: Heart regular rate and rhythm. S1, S2 heard. No murmurs, gallops or rub. ABDOMEN: Soft, nontender. Bowel sounds are heard. No organomegaly noted. EXTREMITIES: 2+ peripheral edema. Positive foot drop FINAL ASSESSMENT AND PLAN: Acute congestive diastolic heart failure exacerbation Elevated troponin, flat trend, not consistent with acute coronary syndrome, likely supply and demand mismatch due to hypoxia and also demand ischemia due to tachycardia Atrial tachycardia/atrial flutter Hypertension Dyslipidemia Urinary tract infection PLAN: Continue amiodarone 200 mg twice daily Start Eliquis 5mg BID, this medication is covered per case management at patient's nursing facility Continue cardiac telemetry Transition to PO Lasix 40mg BID No further changes from a cardiology perspective Further recommendations to be placed on clinical course The patient has been seen and evaluated by practitioner and coordinating physician Objective - Vital Signs Vital signs: Vital Signs Temp 97.9 F 07/01/21 11:22 Pulse 60 07/01/21 11:22 Resp 20 07/01/21 11:22 BP 92/61 07/01/21 11:22 Pulse Ox 100 07/01/21 11:22 Intake & Output 06/30/21 07/01/21 07/01/21 18:59 06:59 18:59 Intake Total 716 118 Output Total 2200 Balance -1484 118 Weight 86 kg 87 kg Intake: Oral 716 118 Output: Urine 2200 Other: Voiding Method External Catheter External Catheter External Catheter # Voids 1 # Bowel Movements 2 - Labs CBC & Chem 7: 07/01/21 07:24 07/01/21 07:24 Labs: Abnormal Lab Results - Last 24 Hours (Table) 07/01/21 07/01/21 Range/Units 07:24 07:24 MCV 103.8 H (80.0-100.0) fL MCHC 30.9 L (31.0-37.0) g/dL Chloride 96 L (98-107) mmol/L Carbon Dioxide 43 H* (22-30) mmol/L Creatinine 0.50 L (0.52-1.04) mg/dL Glucose 112 H (74-99) mg/dL Microbiology - Last 24 Hours (Table) 06/28/21 20:27 Urine Culture - Preliminary Urine,Voided Gram Neg Bacilli Proteus mirabilis 06/28/21 22:07 Blood Culture - Preliminary Blood No Growth after 48 hours 06/28/21 22:22 Blood Culture - Preliminary Blood No Growth after 48 hours
[2021-07-01] MEDS: FUROSEMIDE 40 MG TAB PO SCH (16:38)
[2021-07-02] MEDS: PANTOPRAZOLE 40 MG TABLET PO SCH (06:02)
[2021-07-02] MEDS: LEVOTHYROXINE 88 MCG TAB PO SCH (06:02)
[2021-07-02] MEDS ORDERED: ACETAMINOPHEN TAB 325 MG TAB PO PRN (08:33)
[2021-07-02] MEDS: LORazepam 0.5 MG TAB PO SCH (08:41)
[2021-07-02] MEDS: AMIODARONE 200 MG TAB PO SCH (08:42)
[2021-07-02] MEDS: DULoxetine HCL 60 MG CAPSULE.DR PO SCH (08:42)
[2021-07-02] MEDS: FUROSEMIDE 40 MG TAB PO SCH (08:42)
[2021-07-02] MEDS: APIXABAN 5 MG TAB PO SCH (08:42)
[2021-07-02] MEDS: METOPROLOL SUCCINATE (ER) 25 MG TAB.ER.24H PO SCH (08:42)
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
--- NOTE | 2021-07-02 12:48 | P.PN ---
Subjective Patient is a 70-year-old female with a past medical history of COPD, hyperlipidemia, hypertension, and hypothyroidism, COVID-19 pneumonia in April 2021 she was hospitalized at [facility]. She does not follow with a sports announcer. She is from a nursing facility, sent to the hospital for worsening shortness of breath and hypoxia. Cardiology was consulted for congestive heart failure and paroxysmal SVT, atrial flutter vs atrial tachycardia. In the ER patient was noted to be in SVT given adenosine and did spontaneously convert to sinus rhythm with PACs. 07/02/21 Patient seen and examined at bedside, no acute distress. Her breathing has improved. No further SVT or atrial flutter. Patient maintaining sinus with PACs. She denies any chest pain. Labs, pendin today. Echocardiogram revealed EF 5560 percent, mild pulmonary hypertension with RVSP is 40 mmHg She's currently maintained on amiodarone 200 mg twice a day, Eliquis 5mg BID, metoprolol succinate 75 mg daily, PO Lasix 40mg BID. PHYSICAL EXAMINATION: Th HEENT: Neck is supple. There is no jugular venous distention. CHEST EXAMINATION: Lungs are crackles bilaterally to auscultation. No chest wall tenderness is noted on palpation or with deep breathing. HEART EXAMINATION: Heart regular rate and rhythm. S1, S2 heard. No murmurs, gallops or rub. ABDOMEN: Soft, nontender. Bowel sounds are heard. No organomegaly noted. EXTREMITIES: 2+ peripheral edema. Positive foot drop FINAL ASSESSMENT AND PLAN: Acute congestive diastolic heart failure exacerbation Elevated troponin, flat trend, not consistent with acute coronary syndrome, likely supply and demand mismatch due to hypoxia and also demand ischemia due to tachycardia Atrial tachycardia/Typical atrial flutter Hypertension Dyslipidemia Urinary tract infection PLAN: Continue amiodarone 200 mg twice daily Continue Eliquis 5mg BID, this medication is covered per case management at patient's nursing facility Continue cardiac telemetry Continue PO Lasix 40mg BID No further changes from a cardiology perspective The patient has been seen and evaluated by practitioner and coordinating ph ysician Objective - Vital Signs Vital signs: Vital Signs Temp 98.2 F 07/02/21 08:00 Pulse 72 07/02/21 08:00 Resp 18 07/02/21 08:00 BP 123/63 07/02/21 08:00 Pulse Ox 94 L 07/02/21 08:00 Intake & Output 07/01/21 07/02/21 07/02/21 18:59 06:59 18:59 Intake Total 168 240 Output Total 850 Balance 168 -850 240 Weight 66.5 kg Intake: Intake, IV Titration 50 Amount cefTRIAXone 1 gm In 50 Sodium Chloride 0.9% 50 ml @ 100 mls/hr IVPB Q24HR [facility] Rx#:[id number] Oral 118 240 Output: Urine 850 Other: Voiding Method External Catheter External Catheter External Catheter # Voids 1 1 - Labs CBC & Chem 7: 07/01/21 07:24 07/01/21 07:24 Labs: Microbiology - Last 24 Hours (Table) 06/28/21 22:07 Blood Culture - Preliminary Blood No Growth after 72 hours 06/28/21 22:22 Blood Culture - Preliminary Blood No Growth after 72 hours 06/28/21 20:27 Urine Culture - Preliminary Urine,Voided Gram Neg Bacilli Proteus mirabilis
[2021-07-02 16:06] VITALS: BP 114/75; PULSE 75; RESP 17; TEMP 97.5
== END 2021-07-02 16:38 | DRG 291 ==
LOC: EC 19:12 → 3SCARD 23:02
PROVIDERS: ADMIT Internal Medicine; ATTEND Internal Medicine
DX: I11.0 Hypertensive heart disease with heart failure (principal); I50.33 Acute on chronic diastolic (congestive) heart failure; J96.21 Acute and chronic respiratory failure with hypoxia; E87.3 Alkalosis; I48.3 Typical atrial flutter; I47.1 Supraventricular tachycardia; N39.0 Urinary tract infection, site not specified; Z16.29 Resistance to other single specified antibiotic; G31.89 Other specified degenerative diseases of nervous system; I27.20 Pulmonary hypertension, unspecified; J44.9 Chronic obstructive pulmonary disease, unspecified; Z20.822 Contact with and (suspected) exposure to COVID-19; B96.4 Proteus (mirabilis) (morganii) as the cause of diseases classified elsewhere; E78.5 Hyperlipidemia, unspecified; G47.33 Obstructive sleep apnea (adult) (pediatric); E03.9 Hypothyroidism, unspecified; R77.8 Other specified abnormalities of plasma proteins; Z99.81 Dependence on supplemental oxygen; Z79.890 Hormone replacement therapy; Z79.899 Other long term (current) drug therapy; Z86.16 Personal history of COVID-19; Z87.440 Personal history of urinary (tract) infections; Z87.01 Personal history of pneumonia (recurrent); Z88.1 Allergy status to other antibiotic agents; Z88.0 Allergy status to penicillin; Z91.013 Allergy to seafood; Z88.8 Allergy status to other drugs, medicaments and biological substances; Z91.018 Allergy to other foods
CPT/HCPCS: 36415; 70450; 71045; 80048; 80053; 81001; 82607; 82747; 83605; 83735; 83880; 84443; 84484; 85025; 85379; 85610; 85730; 87040; 87077; 87086; 87186; 87502; 87635; 93005; 93306; 94660; 96374; 96375; 99285

== ENCOUNTER → 2021-07-24 | Outpatient (CLI) | payer MEDICARE, OTHER ==
--- NOTE | 2021-07-25 10:34 | MM ---
Reason for exam: clinical finding. Last mammogram was performed 3 years and 2 months ago. History: Patient is postmenopausal. Physical Findings: Nurse did not find any significant physical abnormalities on exam. MG 3D Diag Mammo W/Cad ESTHER Bilateral CC and MLO view(s) were taken. LM, CCRL, and spot compression CC view(s) were taken of the right breast. Prior study comparison: May 16, 2018, bilateral MG 3d screening mammo w/cad. January 12, 2017, bilateral MG 3d screening mammo w/cad. There are scattered fibroglandular densities. Right subareolar asymmetric density on CC is more defined, but on spot 3D it was a similar appearance to priors and no correlate on MLO or lateral. 6 month follow up recommended. These results were verbally communicated with the patient and result sheet given to the patient on 07/24/21. ASSESSMENT: Probably benign, BI-RAD 3 RECOMMENDATION: Follow-up diagnostic mammogram of the right breast in 6 months.
== END | disposition home or self-care (01) ==
LOC: RADMAMWWP 12:52
PROVIDERS: ATTEND Family Medicine
DX: N63.0 Unspecified lump in unspecified breast (principal); Z78.0 Asymptomatic menopausal state
CPT/HCPCS: 77066; G0279; 77062